=== PATIENT | male | born 1990 | race Hispanic/Latino ===

== ENCOUNTER 2017-02-08 07:33 | Day surgery (SDC) | payer OTHER ==
[~2017-02-08] VITALS: Ht 180.3 cm; Wt 84.9 kg
[2017-02-08] VITALS (8 sets, daily range): BP systolic 99–130; BP diastolic 55–74; PULSE 58–83; RESP 7–28; O2SAT 96–99
[~2017-02-08 07:33] MED LIST: CeFAZolin 2 Gm/50 mL D5W IV Premix IV SCH; Lactated Ringer's 1,000 ML IV ONE
[2017-02-08] MEDS ORDERED: Propofol 10,000 mCg/mL 20 mL Inj ONE (07:34)
[2017-02-08] MEDS ORDERED: Ondansetron 2 mg/mL 2 mL Inj ONE (07:34)
[2017-02-08] MEDS ORDERED: Dexamethasone 4 mg/mL Inj ONE (07:34)
[2017-02-08] MEDS ORDERED: fentaNYL-PF 50 mCg/mL 2 mL Inj ONE (07:34)
[2017-02-08] MEDS ORDERED: CeFAZolin 2 Gm/50 mL D5W Duplex Bag IV ONE (07:56)
[2017-02-08] MEDS ORDERED: Dexamethasone 4 mg/mL Inj IVPUSH PRN (08:35)
[2017-02-08] MEDS ORDERED: MetoCLOpramide 5 mg/mL 2 mL Inj IVPUSH PRN (08:35)
[2017-02-08] MEDS ORDERED: EPHEDrine Sulfate 50 mg/mL Inj IVPUSH PRN (08:35)
[2017-02-08] MEDS ORDERED: Lactated Ringer's 500 ML IV PRN (08:35)
[2017-02-08] MEDS ORDERED: Ondansetron 2 mg/mL 2 mL Inj IVPUSH PRN (08:35)
[2017-02-08] MEDS ORDERED: HYDROmorphone 1 mg/mL Inj IVPUSH PRN (08:35)
[2017-02-08] MEDS ORDERED: fentaNYL-PF 50 mCg/mL 2 mL Inj IVPUSH PRN (08:35)
[2017-02-08] MEDS ORDERED: Lactated Ringer's 1,000 ML IV SCH (08:35)
[2017-02-08] MEDS ORDERED: Phenylephrine 10,000 mCg/mL Inj IVPUSH PRN (08:35)
[2017-02-08] MEDS ORDERED: Bupivacaine-MPF 0.5% 30 mL Inj INFILTRATE ONE (09:11)
--- NOTE | 2017-02-08 09:34 | PCM.HPANE ---
Patient Data Surgeon Admitting Provider: Attending Provider:Gian Alvarez MD Primary Care Physician:Padilla Bolanos DO Other Provider:Marcela Chrisingham Anesthesia Reason for Visit Right Inguinal Hernia Ht/WT & BMI Height (Feet): 5 Height (Inches): 11 Weight (Kilograms): 84.9 Body Mass Index 26.00 Allergies Coded Allergies: No Known Allergies (Unverified , 01/11/17) Past Anesthesia History Anesthesia History: Denies:: Abnormal Airway, Anesthesia Reactions, Difficult Intubation, Fam Anesthesia Reaction Diabetes History Hx Diabetes?: No Current Bedside Blood Glucose: 86 MRSA MRSA: No Medications Home Meds Incl Beta Tripp: No No Active Prescriptions or Reported Meds History History of ENT Problems?: No HEENT History: Denies:: Abnormal Airway Cataracts Difficult Intubation Dysphagia Glaucoma Hearing Problem Sinus Problem TMJ Denture Type: None Teeth Condition: Within Normal Limits Hx of Heart Problems?: No Cardiovascular History: Denies:: AICD Abdominal Aortic Aneurism Atrial Fibrillation Chest Pain Congestive Heart Failure Coronary Artery Disease Edema Heart Murmur Hypertension Irregular Heartbeat Pacemaker Hx of Respiratory Problem?: Yes Respiratory History: Positive for:: Tuberculosis (treated " a long time ago" as a precaution) Denies:: Asthma COPD Emphysema Oxygen Administration Pneumonia Use of C-PAP Machine Hx Neurologic Problems?: No Neurological History: Denies:: CVA Dementia Dizziness Headaches Multiple Sclerosis Parkinson's Disease Seizures TIA Hx of GI Problems?: Yes Other GI Pertinent History: left inguinal hernia current admission problem Hx of Problems?: No Genitourinary History: Denies:: Kidney Stones Urinary Tract Infection Male Hx: Denies:: Prostate Problems Skin History: Denies:: History Skin Disorders? Pressure Ulcers Hx Musculoskeletal Problems?: No Musculoskeletal History: Denies:: Back Injury Degenerative Joint Fibromyalgia Joint Replacement Musculoskeletal Trauma Myasthenia Gravis Osteoarthritis Systemic Lupus Hx of Psycho/Social Problems?: No Psycho Social History: Denies:: Anxiety Hx Depression Hx Surgeries?: Yes (frenulotomy) Hx Any Other Health Problems?: Yes Other History: Denies:: Cancer Thyroid Disease History Blood Transfusions: Positive for:: Accept Blood Products? Denies:: Blood Transfusions Hx Diabetes: NoBedside Blood Glucose: 86 Hx Alcohol Use: YesAlcoholic Drinks Per Day: 4-5 drinks weekend (not every weekend)Hx Substance Use: Yes (marijuana edible, occ smoke randomly - few times )Have You Smoked inLast 12 mo: No Stop/Bang S-Snoring: Do You Snore Loudly: No T-Tired: feel tired, fatigued: No O-Obsered: Observed not breath: No P-Blood Pressure: treated: No B- Body Mass Index > 35 kg/m2: No A- Age over 50: No N- Neck Large Circumference: No G- Gender Male: Yes GINO Total Score: 1 Risk Assessment Category Category 1A: Patient has history of documented sleep apnea, and HAS NOT received any narcotic, sedative or anesthesia administration during this stay. Category 1B: Patient has history of documented sleep apnea, and HAS received any narcotic , sedative or anesthesia administration during this stay Category 2: Patient has SUSPECTED Obstructive Sleep Apnea, and HAS received any narcotic , sedative or anesthesia administration during this stay. Category 3: Patient has SUSPECTED Obstructive Sleep Apnea and HAS NOT received narcotic, sedative or anesthesia administration during this stay. Category 4: Outpatient in Procedural Areas with known sleep apnea or who screen positive for High Risk via the STOP/BANG questionnaire. Exam Exam Vital Signs Vital Signs Date Time Temp Pulse Resp B/P Pulse Ox O2 Delivery O2 Flow Rate FiO2 02/08/17 07:54 35.7 65 16 130/74 99 Room Air General Appearance: Alert, Oriented X3, Cooperative, No Acute Distress HEENT/AIRWAY: MP 1, Neck Movement (Normal), Mouth Opening (3fb) Lungs: Normal Air Movement Heart: Regular Rate/Rhythm Meds/Labs/Diagnostics Admission Meds Current Medications Lactated Ringer's (Lr) 1,000 ml @ 10 mls/hr Q24H ONCE IV Last administered on 02/08/17t 07:40; Start 02/08/17 at 06:00; Stop 02/09/17 at 05:59 Bedside Blood Glucose: 86 Plan Impression Patient chart reviewed, patient interviewed and anesthestic plan with risks, benefits, and alternatives discussed, and informed consent obtained. NPO per Anesth. Guidelines: Yes ASA Physical Status: ASA1 Normal Healthy Anesthetic Plan: GA Bene/Risks/Altern/Consents: Yes HP Complete Prior to Induction: Yes Jose Antonio Wesley MD Feb 08, 2017 08:35
[2017-02-08] MEDS ORDERED: HYDROcodone-APAP 5-325 mg Tablet PO PRN (10:25)
--- NOTE | 2017-02-08 10:34 | OP ---
[address] [id number] OPERATIVE REPORT PATIENT: LUCILLE NEAL : 1990 MR#: [id number] ADMIT: 02/08/2017 JOB ID: [id number] DATE OF SURGERY: 02/08/2017 PREOPERATIVE DIAGNOSIS(ES): Symptomatic right inguinal hernia. POSTOPERATIVE DIAGNOSIS(ES): Symptomatic indirect right inguinal hernia. OPERATION: Repair of symptomatic indirect right inguinal hernia with Kugel patch. SURGEON: Gian Alvarez MD. TRAFFIC CIRCUIT ENGINEER: Newton Dos Santos PA-C. INDICATIONS: A 26-year-old male who developed a right inguinal bulge earlier this summer causing localized discomfort. He was seen by Dr. Amy Truong but at the last moment because of a very busy schedule I was asked to perform the operation. This morning before the operation I have met with the patient. I re-examined him. He had an obvious moderately large right inguinal hernia. I discussed the etiology of inguinal hernias, their repair and expected postoperative recovery. I recommended proceeding with a Kugel repair and after obtaining informed consent, he agreed to proceed. He was informed yesterday that I would be the surgeon, and he agreed to that. FINDINGS: Indirect right inguinal hernia. No obvious direct or femoral hernia. DESCRIPTION OF PROCEDURE: At the beginning and end of the operation, SCOAP checklist was completed. He received an LMA anesthetic. Hair was clipped. He received preoperative antibiotics. Using ChloraPrep, he was prepped and draped in the usual fashion. The incision was designed and infiltrated with 0.5% bupivacaine. Dissection was carried down through Harish fascia, and the external oblique, internal oblique and transversus abdominis were opened in the direction of their fibers. The transversalis fascia was opened vertically. The peritoneum was identified, the cord structures were identified and the hernia sac was mobilized off of the spermatic cord well beyond the separation of the gonadal vessels and vas deferens. The deep epigastric artery and vein were identified and reflected anteriorly, and the preperitoneal space was developed with blunt dissection medial to the pubic tubercle. It was developed superiorly, and further dissection of the hernia sac off of the proximal cord was done. After completing the development of the preperitoneal space and mobilization of the sac, the repair was completed with a small Kugel patch. It was secured to the transversus abdominis with interrupted 2-0 PDS. The internal oblique was closed with running 2-0 PDS, the external oblique and Harish fascia with running 3-0 Vicryl. The skin with subcuticular 4-0 Vicryl and Dermabond. The estimated blood loss was 2 cc. There were no apparent complications. The final sponge, needle and instrument counts were announced as correct, and he was returned to the recovery room in stable condition. Critical assistance was provided by Newton Dos Santos PA-C.
--- NOTE | 2017-02-08 12:43 | PCM.ANEP1 ---
Post Anesthesia PACU Phase 1 Assessment Vital Signs Vital Signs Date Time Temp Pulse Resp B/P Pulse Ox O2 Delivery O2 Flow Rate FiO2 02/08/17 11:03 74 16 117/74 98 Room Air 02/08/17 10:52 36.9 77 18 123/72 98 Room Air 02/08/17 10:45 59 7 99/66 96 Room Air 02/08/17 10:40 63 11 105/63 96 Room Air 02/08/17 10:35 83 17 106/57 98 Simple Mask 10 02/08/17 10:30 58 28 108/55 98 Simple Mask 10 02/08/17 10:25 36.5 62 11 116/64 98 Simple Mask 10 02/08/17 07:54 35.7 65 16 130/74 99 Room Air Anesthetic Administered: GA Level of Alertness: Awake, talking Pain: No Nausea or Vomiting: No CV Function & Hydration Stable: Yes Airway Device: None Oxygen Delivery: Room Air Lungs: Normal Air Movement PACU Phase 2 Assessment Complications: No Follow up Care: N/A Patient Instructions Provided: Yes Jose Antonio Wesley MD Feb 08, 2017 12:43
== END 2017-02-08 23:59 | disposition home or self-care (01) ==
LOC: SAS 07:33
PROVIDERS: ATTEND Surgery
DX: K40.90 Unilateral inguinal hernia, without obstruction or gangrene, not specified as recurrent (principal)
CPT/HCPCS: 49505; C1781; J0690; J1100; J1885; J2250; J2405; J2704; J3010; J7120